=== PATIENT | female | born 1985 | race Caucasian/White ===

== ENCOUNTER 2020-06-18 09:51 | Outpatient (CLI) | payer OTHER, SELFPAY ==
--- NOTE | ~2020-06-18 | US_ITS ---
EXAMINATION: US venous doppler [facility] EXAM DATE: 06/18/2020 10:37 INDICATION: Anterior left henriquez pain. TECHNIQUE: Multiple grayscale, color flow and Doppler images of the left lower extremity deep venous system obtained and reviewed. There is no prior study for comparison. FINDINGS: LEFT SIDE Common femoral: -------- Normal. Profunda femoral: ------- Normal. Femoral: Normal. Popliteal: Normal. Posterior tibial: --------- Normal. Peroneal: Normal. Gastrocnemius: Not visualized. Soleus: Not visualized. Greater saphenous: -----Thrombosed mid calf. Lesser saphenous: ------ Not visualized. IMPRESSION: 1. Right greater saphenous calf segment superficial venous thrombophlebitis. 2. No DVT. Reviewed, dictated and finalized at location B.
== END 2020-06-18 09:52 | disposition home or self-care (01) ==
LOC: ANHIMG 09:59
PROVIDERS: PCP Physician Assistant; Visit Provider Physician Assistant
DX: M79.605 Pain in left leg (principal); Z86.711 Personal history of pulmonary embolism; I82.493 Acute embolism and thrombosis of other specified deep vein of lower extremity, bilateral
CPT/HCPCS: 93971

== ENCOUNTER 2020-12-24 14:47 | Emergency (ER) | payer OTHER, SELFPAY | END 2020-12-24 15:08 | disposition left against medical advice (07) | PROVIDERS: Emergency Provider Internal Medicine Hematology & Oncology; PCP Physician Assistant | DX: Z53.21 Procedure and treatment not carried out due to patient leaving prior to being seen by health care provider (principal) | CPT/HCPCS: 99199 ==

== ENCOUNTER → 2020-12-24 15:14 | Outpatient (CLI) | payer OTHER, SELFPAY ==
--- NOTE | ~2020-12-24 | XR_ITS ---
XR knee RT 2V 12/24/2020 15:34 Indication: Right knee pain Procedure: 2 views right knee Comparison: No prior studies for comparison. Findings: There is mild osteoarthritis of the right knee. Small joint effusion. No fracture or trauma tic malalignment. No foreign bodies. Impression: 1: Mild tricompartment osteoarthritis of the right knee. Reviewed, dictated and finalized at location B. Impression: 1: Mild tricompartment osteoarthritis of the right knee.
== END ==
PROVIDERS: PCP Physician Assistant; Visit Provider Physician Assistant
DX: M17.11 Unilateral primary osteoarthritis, right knee (principal)
CPT/HCPCS: 73560